=== PATIENT | female | born 1950 | race Caucasian/White ===

== ENCOUNTER → 2016-12-06 | Outpatient (CLI) | payer MEDICARE ==
[~2016-12-06] MED LIST: ASPI-515 PO; CARV3.1212 PO; DOCU-30 PO; ESOM40CA PO; FURO20TA3 PO; LISI-167 PO; OXYC5TAB3 PO; POTA10TA11 PO; WARF2.5T PO
== END | disposition home or self-care (01) ==
LOC: CFH 10:54
PROVIDERS: ATTEND Internal Medicine Cardiovascular Disease
DX: I08.3 Combined rheumatic disorders of mitral, aortic and tricuspid valves (principal); I10 Essential (primary) hypertension; E78.5 Hyperlipidemia, unspecified; Z95.2 Presence of prosthetic heart valve
CPT/HCPCS: 93306

== ENCOUNTER → 2016-12-16 | Outpatient (CLI) | payer MEDICARE | END | disposition home or self-care (01) | LOC: CFH 07:00 | PROVIDERS: ATTEND Family Medicine | DX: Z12.31 Encounter for screening mammogram for malignant neoplasm of breast (principal) | CPT/HCPCS: 77063; G0202 ==

== ENCOUNTER → 2017-12-17 | Outpatient (CLI) | payer MEDICARE ==
[~2017-12-17] MED LIST changes: +DOCU-131 PO; -DOCU-30 PO
== END | disposition home or self-care (01) ==
LOC: CFH 10:13
PROVIDERS: ATTEND Family Medicine
DX: Z12.31 Encounter for screening mammogram for malignant neoplasm of breast (principal); E04.2 Nontoxic multinodular goiter
CPT/HCPCS: 76536; 77063; 77067

== ENCOUNTER → 2018-11-20 | Outpatient (CLI) | payer MEDICARE | END | disposition home or self-care (01) | LOC: CFH 12:35 | PROVIDERS: ATTEND Internal Medicine Cardiovascular Disease | DX: I08.8 Other rheumatic multiple valve diseases (principal); I10 Essential (primary) hypertension; E78.5 Hyperlipidemia, unspecified | CPT/HCPCS: 93306 ==

== ENCOUNTER 2018-12-18 10:34 | Outpatient (CLI) | payer MEDICARE | END 2018-12-18 23:59 | disposition home or self-care (01) | LOC: CFH 10:34 | PROVIDERS: ATTEND Family Medicine | DX: Z12.31 Encounter for screening mammogram for malignant neoplasm of breast (principal); E04.1 Nontoxic single thyroid nodule | CPT/HCPCS: 76536; 77063; 77067 ==

== ENCOUNTER 2019-12-28 13:53 | Outpatient (CLI) | payer MEDICARE ==
[~2019-12-28 13:53] MED LIST changes: -WARF2.5T PO; +WARF2.5T2 PO
== END 2019-12-28 23:59 | disposition home or self-care (01) ==
LOC: CFH 13:53
PROVIDERS: ATTEND Family Medicine
DX: Z12.31 Encounter for screening mammogram for malignant neoplasm of breast (principal); R92.2 Inconclusive mammogram
CPT/HCPCS: 76641; 77063; 77067

== ENCOUNTER 2021-02-09 14:54 | Outpatient (CLI) | payer MEDICARE ==
[~2021-02-09 14:54] MED LIST changes: -ASPI-515 PO; +ASPI-963 PO; -OXYC5TAB3 PO; +OXYC5TAB98 PO
== END 2021-02-09 23:59 | disposition home or self-care (01) ==
LOC: CFH 14:54 → EDSTATUS 15:00 → CFH 23:59
PROVIDERS: ATTEND Family Medicine
DX: Z12.31 Encounter for screening mammogram for malignant neoplasm of breast (principal); Z12.39 Encounter for other screening for malignant neoplasm of breast
CPT/HCPCS: 76641; 77063; 77067